=== PATIENT | female | born 1930 | race Caucasian/White ===

== ENCOUNTER 2016-10-16 21:20 | Inpatient (IN) | payer MEDICARE, BC ==
[~2016-10-16] VITALS: Ht 162.6 cm; Wt 72.9 kg
--- NOTE | ~2016-10-16 | DS ---
ADMIT: 10/16/2016 RM/LOC: 510 [facility] MR#: [id number] [address] [address] TITI BEAUCHAMP [address] [place] [address] General Discharge Summary SEX: F AGE: 85 : 1930 ADMISSION DATE: 10/16/2016 DISCHARGE DATE: 10/19/2016 SERVICE: Neurosurgery. REASON FOR ADMISSION: 1. Fall. 2. Subdural hematoma. 3. Right distal radius fracture. 4. Hyponatremia. CONSULTS: Ruiz Nieto MD, with Orthopedics. PROCEDURE: Right distal radius closed reduction and casting. HOSPITAL COURSE: Ms. Beauchamp is a very pleasant 86-year-old female, who was walking out to her mailbox on the day of admission, saw branch in her driveway, bent over to pick it up and throw it and fell. She landed on her outstretched right hand and hit her head. She was a little confused initially after the fall. She was taken to the [facility] Emergency Room for evaluation. A CT scan of her head was obtained and revealed a right-sided subdural hematoma. She had swelling to her right wrist and ankle. A wrist x- ray revealed a right distal radius fracture. This was splinted. X-ray of the right ankle revealed no fractures. A CT of her cervical spine was negative for fractures. She was transferred to [facility] for neurosurgical evaluation and care. She was admitted to the ICU for close monitoring and care. Dr. Nieto with Ortho was consulted for radial fracture. She did have some hyponatremia. Hospital day #2, she was awake and alert, she was afebrile. Her vital signs were stable, she was moving all extremities x4, her right arm was in a splint. She denied headache or visual disturbances. She did have some right periorbital edema and ecchymosis. Her sodium was 121. She was getting p.o. salt tabs. Her sodium was checked later that afternoon and was stable. She was transferred out of the intensive care unit to the Med/Surg floor. She did work with Physical Therapy and Occupational Therapy and tolerated this quite well. Hospital day #3, she was awake and alert. She was moving all extremities x4, her right arm remained in a splint. She was taken to the operating room for closed reduction of her right wrist fracture. She tolerated her procedure well. Postoperatively, she was taken to the Med/Surg floor. Hospital day #4, she was awake and alert, she was afebrile and her vital signs were stable. She was moving all extremities x4. Her right forearm was in a cast. She continued with some stable right periorbital ecchymoses. She was evaluated by the inpatient rehabilitation unit and deemed to be a good candidate for rehab with plans to return to her prior function of living status. On the day of discharge, she was deemed medically fit for transfer to the inpatient rehabilitation unit. DISCHARGE CONDITION: Good. ADMIT: 10/16/2016 RM/LOC: 510 [facility] MR#: [id number] [address] [place] [id number] TITI BEAUCHAMP [address] [place] [address] General Discharge Summary SEX: F AGE: 85 : 1930 MEDICATIONS: Colace 100 mg p.o. b.i.d., milk of magnesia 10 mL p.o. daily, Protonix 40 mg p.o. daily, Senokot one tab p.o. b.i.d., thermo tabs two tabs p.o. b.i.d., hydrocodone 5/325 one p.o. q.4 hours p.r.n., Tylenol 650 mg p.o. q.4 hours p.r.n., amlodipine 5 mg daily, Zetia 10 mg q. p.m., simvastatin 80 mg daily, metoprolol succinate 50 mg b.i.d., carbinoxamine 4 mg daily p.r.n., Estazolam 1 mg at bedtime p.r.n., levothyroxine 100 mcg daily, indapamide 2.5 mg every other day, vitamin D3 2000 units daily, multivitamin daily, meclizine 25 mg t.i.d. p.r.n. It is okay for DVT chemical prophylaxis as needed. DISCHARGE INSTRUCTIONS: Per Dr. Avila, she can have a regular diet. She is a fall risk. She should continue with Physical Therapy and Occupational Therapy. She will call with any questions or concerns including neurological worsening, signs or symptoms of infection, or any other issues. FOLLOWUP: She will follow up with [facility] in [place] on October 26. She will follow up with Dr. Avila in clinic in 1 month. DISPOSITION: She was discharged to the inpatient rehabilitation unit. Total flnl-wa-fxip time for the discharge planning, care, and coordination was 30 minutes. Merissa Martinez APRN / Richard Avila MD / vashti JOB #: [id number] CC: Richard Avila MD, Attending Physician Richard Avila MD, Family Physician
--- NOTE | 2016-10-19 07:33 | HP ---
ADMIT: 10/16/2016 RM/LOC: 310 [facility] MR#: [id number] [id number] [place], [place] [address] TITI BEAUCHAMP [address] [place] [address] History and Physical SEX: F AGE: 85 : 1930 Corrected: 10/17/2016 1159 fredy DATE OF SERVICE: CHIEF COMPLAINT: This is an admit for subdural hematoma. HISTORY OF PRESENT ILLNESS: Ms. Beauchamp is an 85-year-old woman, who lives alone at home. She was out going to the mailbox today when she noticed a branch across the sidewalk. She bent down to pick it up and throw it across the street and that did not go as planned. She fell down bruising up the right side of her body and fracturing her arm. She remembers the whole thing but sounds like she might have been mildly concussed because there was a person driving by in a car and she did not think she recognized them right afterwards, and when they told her their name, she realized it was somebody that she knew, although she was a little bit confused shortly after the fall. She does remember the entire incident though. PAST MEDICAL HISTORY: Atrial fibrillation, rheumatoid arthritis. PAST SURGICAL HISTORY: Prior lumbar surgery. She also has had an orthopedic procedure with Dr. Martinez previously. SOCIAL HISTORY: She is a nonsmoker and a nondrinker. FAMILY HISTORY: No history of neurological disease. REVIEW OF SYSTEMS: Complete review of systems was obtained with pertinent positives in the history of present illness. MEDICATIONS: She is on Voltaren and a daily aspirin as mild blood thinners. No other known blood thinners. PHYSICAL EXAMINATION: VITAL SIGNS: 155/70, 67 beats, 15 respirations, 98% on room air. GENERAL: She is an otherwise healthy-appearing woman who appears her stated age. HEENT: She has an atraumatic head. LUNGS: Normal respiratory excursion. SPINE: She was brought in in cervical spinal precautions. There is no sign of fracture on CT scan. She has full range of motion that is comfortable and nonpainful. She does not have any tenderness along the midline. ABDOMEN: Soft abdomen. EXTREMITIES: She has a splint to the right arm, 2+ radial pulse on the left. Less than 2 second capillary refill on the right. NEUROLOGICAL EXAMINATION: MENTAL STATUS: She is awake, alert, and oriented x4. She has no dysphonia, dysarthria, or aphasia. Her affect is appropriate. Her thought content is normal. CRANIAL NERVES: Cranial nerves II through XII were individually tested and ADMIT: 10/16/2016 RM/LOC: 310 [facility] MR#: [id number] [address] [address] TITI BEAUCHAMP [address] [place] [address] History and Physical SEX: F AGE: 85 : 1930 found to be intact without deficit. MOTOR EXAM: Motor exam reveals 5/5 strength in bilateral upper and lower extremities with normal bulk, normal tone. There is incomplete assessment of the right upper extremity due to her splint. SENSATION: Intact to light touch in upper and lower extremities. DEEP TENDON REFLEXES: 2/4 in the left arm and bilateral lower extremities. ASSESSMENT AND PLAN: Ms. Beauchamp is a very pleasant woman with a 5 mm right- sided frontotemporal subdural hematoma. She also has a fracture in the right upper extremity that has previously been splinted. She has seen Dr. Martinez before. We will have one of the gentleman at [facility] see her, evaluate her, and hopefully she can then return to Dr. Martinez, whom she was happy with from seeing him before. We will keep her in the ICU overnight and repeat a CT scan in 48 hours to make sure there is no change or repeat one sooner if there is any change in neurological status. Plan to keep a close eye on her in the ICU for the next 24 hours and we will see how she does at that point. Richard Avila MD/ vashti JOB #: [id number] CC: Richard Avila, Attending Physician Richard Avila, Family Physician Corrected: 10/17/2016 1159 fredy
--- NOTE | 2016-10-27 07:49 | CO ---
ADMIT: 10/16/2016 RM/LOC: 310 [facility] MR#: [id number] 26[address] [facility] [address] [place], [place] [address] [address]HA [address]BE [address] [facility] [place] [address] Consultation SEX: F AGE: 85 : 1930 Corrected: 10/17/2016 1206 fredy DATE OF CONSULTATION: 10/17/2016 ATTENDING PHYSICIAN: Richard Avila CONSULTING PHYSICIAN: Ruiz Nieto MD CHIEF COMPLAINT: Right wrist fracture. HISTORY: Maliha had fallen, had some head trauma, and also landed on her outstretched right arm and suffered a distal radius fracture. She was sent here for care of her head injury and having her sodium corrected. She was placed into a splint for a distal radius fracture. She has some pain there, but she was able to move everything with no problems. REVIEW OF SYSTEMS: She has the head pain and wrist pain, otherwise negative. PAST MEDICAL HISTORY/SURGICAL HISTORY: Otherwise noncontributory. OBJECTIVE: GENERAL: She is awake, alert, oriented, in no acute distress. VITAL SIGNS: Afebrile. Vital signs stable. EXTREMITIES: In the right arm, she has a well fit splint. She is wiggling all of her fingers. She has sensation intact to light touch. Brisk capillary refill. LABORATORY AND X-RAY DATA: She has a Colles fracture with dorsal angulation. ASSESSMENT: An 85-year-old female with a right distal radius fracture. PLAN: I am going to make sure she ices it, keeps it elevated, keeps her fingers wiggling, and as the swelling comes down in the next few days, we will plan, once she is kind of stable and all these other issues are well taken care of, we will go ahead and do just a hematoma block and do closed reduction and casting to improve the alignment of the distal radius fracture. Ruiz Nieto MD/ vashti JOB #: [id number] CC: Richard Avila, Attending Physician Richard Avila, Family Physician Corrected: 10/17/2016 1206 fredy
--- NOTE | 2016-10-31 08:49 | OR ---
ADMIT: 10/16/2016 RM/LOC: 510 [facility] MR#: [id number] [address] [address] MALIHA BERNABE [address] [facility] [address] Operative/Delivery Room Report SEX: F AGE: 85 : 1930 SURGERY DATE: 10/18/2016 SURGEON: Ruiz Nieto MD PROCEDURE PERFORMED: Right distal radius closed reduction and casting. DIAGNOSIS: Right distal radius fracture. INDICATIONS: The patient suffered a fall resulting in a right distal radius fracture with angulation. ANESTHESIA: Local hematoma block with 1% lidocaine. COMPLICATIONS: None. DESCRIPTION OF PROCEDURE: Maliha is an 85-year-old female, who suffered a fall resulting in a right distal radius fracture, it was splinted in the ER with apex volar angulation. Discussed the risks and benefits of closed reduction and casting with her under local anesthetic block, she consented to proceed. Therefore, her splint was removed and sterilely prepped. Then I injected 10 mL 1% plain lidocaine into the fracture site as a hematoma block. After appropriate anesthesia was achieved, the thumb, index, and middle finger were hung in finger trap device and 7.5 pounds of traction were placed at the elbow. After several minutes of traction, the fracture was manipulated until improved alignment was felt to be achieved and a well-molded, well-padded short-arm cast was placed and molded in a flexed position at the fracture site. Traction was removed, cast set up in satisfactory position. She tolerated the procedure well. There were no complications. Postreduction films showed improved alignment with neutral ulnar variance and only a few degrees of residual tilting dorsally. We will plan to follow up with her outpatient to the office in [place] where she would like to do her followup. David Martin PA-C / Ruiz Nieto MD / vashti JOB #: [id number] CC: Richard Avila, Attending Physician Richard Avila, Family Physician
== END 2016-10-19 13:00 | disposition short-term general hospital (02) | DRG 86 ==
LOC: 5MS 21:20 → 3ICU 21:20 → 5MS 10-18 00:31
PROVIDERS: ADMIT Neurological Surgery
PROC: 0PSHXZZ Reposition Right Radius, External Approach (ICD-10-PCS; principal; 2016-10-18)
PROC: 2W3CX2Z Immobilization of Right Lower Arm using Cast (ICD-10-PCS; principal; 2016-10-18)
DX: S06.5X0A Traumatic subdural hemorrhage without loss of consciousness, initial encounter (principal); S52.531A Colles' fracture of right radius, initial encounter for closed fracture; I48.91 Unspecified atrial fibrillation; E87.1 Hypo-osmolality and hyponatremia; M06.9 Rheumatoid arthritis, unspecified; W19.XXXA Unspecified fall, initial encounter; Z79.82 Long term (current) use of aspirin

== ENCOUNTER 2016-10-19 12:41 | Inpatient (IN) | payer MEDICARE, BC ==
[~2016-10-19] VITALS: Ht 162.6 cm; Wt 71.0 kg
[2016-11-01] MEDS ORDERED: NORVASC5 MG PO (20:31)
[2016-11-01] MEDS ORDERED: ZOCOR80 MG PO (20:32)
[2016-11-01] MEDS ORDERED: SYNTHROID DPS0.1 MG PO (20:32)
[2016-11-01] MEDS ORDERED: ZETIA10 MG PO (20:32)
[2016-11-01] MEDS ORDERED: [UNRECOGNIZED DRUG - OTHER] PO (20:33)
[2016-11-01] MEDS ORDERED: ASPIR 8181 MG PO (20:33)
[2016-11-01] MEDS ORDERED: IRON325 M1 PO (20:33)
[2016-11-01] MEDS ORDERED: THERA1 EACH PO (20:33)
[2016-11-01] MEDS ORDERED: VITAMIN D31000 UNIT PO (20:34)
[2016-11-01] MEDS ORDERED: TOPROL XL100 MG PO (20:34)
[2016-11-01] MEDS ORDERED: ASCORBIC ACID500 MG PO (20:34)
[2016-11-01] MEDS ORDERED: ULTRAM DPS50 MG PO (20:35)
[2016-11-01] MEDS ORDERED: ESTAZOLAM1 MG PO (20:35)
[2016-11-01] MEDS ORDERED: COLACE-DPS100 MG PO (20:35)
[2016-11-01] MEDS ORDERED: TYLENOL325 MG PO (20:35)
[2016-11-01] MEDS ORDERED: MAGNESIUM30 MG PO (20:37)
[2016-11-01] MEDS ORDERED: ARBINOXA4 MG PO (20:37)
--- NOTE | 2016-12-03 07:25 | DS ---
ADMIT: 10/19/2016 RM/LOC: 612 [facility] [place] MR#: [id number] [address] [address] TITI BERNABE [address] [facility] [place] [address] General Discharge Summary SEX: F AGE: 85 : 1930 ADMISSION DATE: 10/19/2016 DISCHARGE DATE: 11/01/2016 DISCHARGE DIAGNOSES: Brain dysfunction 02., traumatic closed injury, S06.5X1F traumatic subdural hemorrhage with loss consciousness with 30 minutes or less sequela, onset 10/16/2016, comorbid conditions per initial H and P. Other diagnoses per hospital course below. HOSPITAL COURSE: Please see my initial H and P for details prior to transfer to the IRU. 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 Pain and bowel regimen were adjusted. Postvoid residuals obtained. Lovenox started for DVT prophylaxis. Protonix changed to Pepcid to decrease risk of C. diff. Hydrocodone switched OxyIR for posttraumatic pain. Statin for hyperlipidemia. Dietitian followed to optimize nutrition. Pharmacy followed to optimize medication management. Hyponatremia treated with no free water, Powerade Zero, G2 Gatorade instead. Hypokalemia replaced with KCl 40 mEq x2. Hypophosphatemia replaced with K-Phos Neutral 4 doses. Slow-Mag for hypomagnesemia as well. Lab followed upon for resolution. Synthroid adjusted for hypothyroidism. PVRs were normal. Lovenox renally dosed initially increased to 40 mg on 10/22/2016 after azotemia. Acute renal failure resolved. Sodium remained low, so continued to treat for hyponatremia. Hypomagnesemia is borderline. Potassium and phosphorus came back in the normal range. Iron 11%. Iron deficiency with acute blood loss anemia, so put on Feosol and vitamin C. Vitamin D deficiency replaced. Toprol-XL adjusted for hypertension. Zetia adjusted for hyperlipidemia. Milk of magnesia, suppository, and warm water enema for constipation. Fluid restriction again instituted for hyponatremia. No free water. Slow-Mag increased for continued hypomagnesemia, and KCl replaced for hypokalemia. P.r.n.'s for constipation. Vitamin D adjusted for deficiency. Ortho followed up on 10/25/2016, with 2 views of the right wrist and recommended continuing in cast and follow up with a week. Lovenox discontinued on 10/25/2016 as was ambulating sufficiently to prevent DVT. Slow-Mag and Thermotabs discontinued on 10/26/2016. Senokot-S adjusted for constipation. Vitamin D decreased for vitamin D deficiency. Zocor decreased for hyperlipidemia. Lab was followed up on. No more fluid restriction necessary on 10/29/2016. Sodium 133, potassium 3.5, magnesium still low at 1.5 and so Slow-Mag was again adjusted. KCl given 40 mEq again. Feosol and vitamin C continued for iron deficiency anemia. Orthopedics followed up on 10/31/2016. OxyIR switched to tramadol for pain prior to discharge. Lab was checked prior to discharge and was within normal limits except for potassium little bit low and so that was replaced again. KCl x2 doses. Slow-Mag continued twice a day with recommendation for BMP and mag phos and follow up. The patient was medically ADMIT: 10/19/2016 RM/LOC: 612 [facility] [place] MR#: [id number] [address] [address] TITI BERNABE [address] [address] General Discharge Summary SEX: F AGE: 85 : 1930 stable at time of discharge. Please IRU interdisciplinary discharge summary for details regarding progress in therapy. DISCHARGE DISPOSITION: Home. DISCHARGE MEDICATIONS: Please see discharge med rec. Feosol and vitamin C recommended continuing for 1 month. Tramadol #50 given of that with 2 refills. FOLLOWUP: Home healthcare RN, PT/OT, home health aide. Follow up with Dr. Oates as regularly scheduled and Orthopedics as scheduled. BMP and mag phos with preclinic appointment Dr. Oates on , November 08. Андрей Olson MD/ vashti JOB #: [id number] CC:
== END 2016-11-01 13:30 | disposition home health service (06) | DRG 945 ==
LOC: 6IRU 12:41
PROVIDERS: ADMIT Physical Medicine & Rehabilitation
PROC: F08Z2FZ Grooming/Personal Hygiene Treatment using Assistive, Adaptive, Supportive or Protective Equipment (ICD-10-PCS; principal; 2016-10-19)
PROC: F07Z9ZZ Gait Training/Functional Ambulation Treatment (ICD-10-PCS; principal; 2016-10-19)
PROC: F08Z0FZ Bathing/Showering Techniques Treatment using Assistive, Adaptive, Supportive or Protective Equipment (ICD-10-PCS; principal; 2016-10-19)
DX: S06.5X1D Traumatic subdural hemorrhage with loss of consciousness of 30 minutes or less, subsequent encounter (principal); N17.9 Acute kidney failure, unspecified; E87.1 Hypo-osmolality and hyponatremia; E83.42 Hypomagnesemia; D62 Acute posthemorrhagic anemia; S52.501D Unspecified fracture of the lower end of right radius, subsequent encounter for closed fracture with routine healing; M06.9 Rheumatoid arthritis, unspecified; G47.00 Insomnia, unspecified; E87.6 Hypokalemia; E55.9 Vitamin D deficiency, unspecified; K59.00 Constipation, unspecified; G31.84 Mild cognitive impairment of uncertain or unknown etiology; M62.81 Muscle weakness (generalized); I10 Essential (primary) hypertension; E78.5 Hyperlipidemia, unspecified; E03.9 Hypothyroidism, unspecified; E83.39 Other disorders of phosphorus metabolism; K21.9 Gastro-esophageal reflux disease without esophagitis; R27.8 Other lack of coordination; R26.89 Other abnormalities of gait and mobility; W19.XXXD Unspecified fall, subsequent encounter; Y92.096 Garden or yard of other non-institutional residence as the place of occurrence of the external cause